=== PATIENT | female | born 1945 | race Caucasian/White ===

== ENCOUNTER 2018-12-31 05:43 | Inpatient (IN) | payer OTHER ==
[2018-12-24 13:37] LABS: HEMATOCRIT 37.4 % (37.0-47.0); HEMOGLOBIN 12.6 gm/dL (12.0-15.0); MCH 30.4 pg (26.0-34.0); MCHC 33.7 g/dL (28.0-37.0); MCV 90.1 fL (80.0-100.0); RBC 4.15 mil/uL (4.20-5.00); RDW 13.3 % (10.5-14.5); URINE BILIRUBIN NEGATIVE (Negative); URINE BLOOD NEGATIVE (Negative); URINE CLARITY CLEAR; URINE COLOR YELLOW; URINE GLUCOSE-RANDOM* NEGATIVE (Negative); URINE KETONES NEGATIVE (Negative); URINE LEUKOCYTES-REFLEX TRACE (Negative); URINE NITRITE-REFLEX NEGATIVE (Negative); URINE PROTEIN (DIPSTICK) NEGATIVE (Negative); URINE UROBILINOGEN 0.2 E.U./dl (0.2-1.0); WBC 11.9 thou/uL (4.0-11.0)
[2018-12-24 13:44] LABS: CREATININE 0.9 mg/dL (0.6-1.0)
[2018-12-24 13:47] LABS: PROTIME 9.7 Seconds (9.3-11.4)
--- NOTE | 2018-12-25 07:30 | EKG ---
[address] [address] ELECTROCARDIOGRAM REPORT Name: DAYOADALI Room #: [facility]#: [id number] ������������������ Admission: ������������������ Attend Phys: Fabirzio Schilling MD Discharge: ������������������ Date of : 41 Report #: [id number] ����������������������������������������������������������������� [id number] THIS REPORT FOR: //name// [facility] Test Date: 2018-12-24 Test Time: 13:28:46 Pat Name: ADALI OSHEA Department: Room: Gender: F Technical Director: Delbert BLANK : 1945 Requested By: Fabrizio Schilling Order Number: [id number] MD: Macario Carrizales Measurements Intervals [place] Rate: 61 P: 62 AR: 184 QRS: 26 QRSD: 96 T: 45 QT: 421 QTc: 424 Interpretive Statements Sinus rhythm Normal tracing Compared to ECG 07/23/2013 17:25:01 Sinus bradycardia no longer present Electronically Signed On 12-25-2018 7:30:21 CDT by Macario Carrizales [email or web address] ��������������������������������������������� <ELECTRONICALLY SIGNED> ���������������������������������������� By: Macario Carrizales MD, [facility] ��������������������������������������������� 12/25/18 0730 1328 27 Macario Carrizales MD, FACC /EPI
[~2018-12-31] VITALS: Ht 154.9 cm; Wt 72.6 kg
--- NOTE | ~2018-12-31 | O ---
[facility] [place] [address] OPERATIVE REPORT Name: ADALI OSHEA Room #: 458-P [facility] IN M.R.#: [id number] Admission: 12/31/18 ������������������ Attend Phys: Fabrizio Schilling MD Discharge: ������������������ Date of : 41 Report #: [id number] THIS REPORT FOR: //name// CC: Dixie Schilling DATE OF SERVICE: 12/31/2018 PREOPERATIVE DIAGNOSIS: Right knee valgus osteoarthritis. POSTOPERATIVE DIAGNOSIS: Right knee valgus osteoarthritis. PROCEDURE: Right total knee arthroplasty using Navio robotic social research assistant. SURGEON: Fabrizio Schilling MD ANESTHESIA: LMA with an adductor canal block. IMPLANTS: [employer] size 6 narrow Legion Oxinium posterior stabilized femur, a size 4 tibia, size 9 polyethylene and size 32 patella. TOURNIQUET TIME: 59 minutes. ESTIMATED BLOOD LOSS: 25 mL. COMPLICATIONS: None. SPECIMENS: None. CONDITION UPON LEAVING THE OPERATING ROOM: Stable. INDICATIONS FOR PROCEDURE: The patient is a 73-year-old female with right knee valgus osteoarthritis. She had failed conservative measures for this and after discussion with her, she elected for right total knee arthroplasty. She does have reported NICKEL allergy and we discussed the usage of Oxinium for her implant. DESCRIPTION OF PROCEDURE: Risks, benefits, alternatives, complications were discussed in detail with the patient including but not limited to risk of anesthesia, risk of damage to nerves, arteries, blood vessels, risk for infection, bleeding, risk for continued knee pain and need for reoperation. Informed consent was obtained from the patient. Right knee was appropriately marked in the preoperative holding area. IV Ancef was given for preoperative antibiotics. Adductor canal block was placed by Anesthesia. She was brought to the operating room and placed in supine position on operating room table. LMA anesthesia was induced without complication. Tourniquet was placed on the right [address] [address] OPERATIVE REPORT Name: ADALI OSHEA Room #: 458-P [facility] IN ..#: [id number] Admission: 12/31/18 ������������������ Attend Phys: Fabrizio Schilling MD Discharge: ������������������ Date of : 41 Report #: [id number] thigh. Right lower extremity was prepped and draped in normal sterile fashion. Timeout was performed properly identifying the patient and procedure as well as the instrumentation and implants. All in the operating room were in agreement. A lower extremity was exsanguinated, tourniquet was inflated. Tourniquet time was 59 minutes. Standard midline approach to knee was made with 10 blade through the skin. Dissection was taken down sharply to the fascia and deep flaps were developed medially and laterally. Fresh 10 blade was used to make a medial parapatellar arthrotomy and the knee was inspected. There was severe lateral compartment osteoarthritis with moderate medial and patellofemoral changes. ACL and PCL were removed sharply. Reference pins were placed in the femur and the tibia. The knee was then digitally mapped using the myaNUMBER system. Intraoperative plan was made and the size 6 narrow femur, a size 4 tibia with a size 11 spacer. After acceptance of the intraoperative plan, distal femoral cut was made with a Navio bur. The 4-in-1 cutting block was then pinned on the distal femur and the anterior, posterior and chamfer cuts were made. Attention was then turned to the tibia and the knee was hyperflexed. The remainder of the menisci removed with Bovie cautery. Tibial resection guide was pinned in place and tibial resection was made. After this, flexion and extension gaps were checked and found to have just slight tightness laterally in extension and a limited lateral release was performed using the pie-crusting technique. This balanced the knee well. Tibia was sized, found to be a size 4. Size 4 tibial trial was placed, pinned and punched and a size 6 femoral trial was placed and the box cut was made. This was then trialed with a size 9 polyethylene. Knee was taken through range of motion, found to be stable, found to have good balance in flexion and extension with a millimeter to 2 mm of laxity throughout range of motion of the knee. A 9 mm was then resected from the posterior surface of the patella and a size 32 patellar trial button was placed. Knee was taken through range of motion, found to have good patellar tracking. Trial components were removed. Bony ends were thoroughly irrigated with normal saline. A final size 4 tibia, size 6 Legion Oxinium posterior stabilized femur and a size 32 patella were cemented in place using standard cementation techniques. While the cement cured, a periarticular injection consisting of morphine, ropivacaine, epinephrine and Toradol was placed around the knee joint capsule. After the cement cured, the tourniquet was deflated. Hemostasis was obtained with Bovie cautery. Final size 9 polyethylene was placed. The fascia was closed with 0 Vicryl, skin was closed with 2-0 Vicryl, 3-0 Monocryl. Dermabond and sterile dressing was applied. The patient tolerated this procedure well and went to recovery room under care of anesthesia postoperatively. ��������������������������������������������� ���������������������������������������� By: ��������������������������������������������� [id number] Fabrizio Schilling MD /nt
[~2018-12-31 05:43] MED LIST: CALCIUM 500 +1 EAC5 PO; CALCIUM 600 MG1 EAC2 PO; COZAAR 25 MG TA25 M1 PO; HTN; IBUPROFEN 600600 M1 PO; IRON325 PO; LOSARTAN-HCTZ1 EACH PO; OMEPRAZOLE40 MG PO; ZANTAC 150MG T150 MG PO
[2018-12-31 16:20] VITALS: BP 151/64
[2018-12-31 16:35] VITALS: BP 135/42
[2018-12-31 16:55] VITALS: BP 119/46
[2018-12-31 17:30] VITALS: BP 125/49
[2018-12-31 18:00] VITALS: BP 119/46
--- NOTE | 2018-12-31 18:01 | NUR ---
PT ARRIVED FROM POST OP THIS EVENING. PT RESTING COMFOTABLY, NO COMPLAINTS.
[2018-12-31 19:36] VITALS: BP 119/46
--- NOTE | 2019-01-01 03:16 | NUR ---
ASSUMED CARE AROUND 1899. AXOX4. R KNEE OA, DRESSING CDI. PAIN MANAGED PER MD ORDER. NO S/S ACUTE DISTRESS NOTED OR REPORTED AT THIS TIME, WILL CONT TO MONITOR FOR ANY CHANGES IN CONDITION.
[2019-01-01 05:41] LABS: HEMATOCRIT 31.1 % (37.0-47.0); HEMOGLOBIN 10.6 gm/dL (12.0-15.0); MCH 30.8 pg (26.0-34.0); MCHC 34.2 g/dL (28.0-37.0); MCV 90.2 fL (80.0-100.0); RBC 3.44 mil/uL (4.20-5.00); RDW 13.1 % (10.5-14.5); WBC 12.5 thou/uL (4.0-11.0)
[2019-01-01 07:16] VITALS: BP 120/40
[2019-01-01] MEDS ORDERED: NEURONTIN 300300 M1 PO (11:50)
[2019-01-01] MEDS ORDERED: ASPIR 8181 MG PO (11:50)
--- NOTE | 2019-01-01 13:54 | NUR ---
PT ADMITTED RELATED TO RIGHT TOTAL KNEE REPLACEMENT. CM REVIEWED CHART AND SPOKE WITH CARE TEAM. CM MET WITH PT AND HER SPOUSE BEDSIDE THIS DAY. PT INDICATED SHE HAD BEEN LIVING IN A HOUSE WITH HER SPOUSE WITH 2 STEPS TO ENTER AND NO STEPS INSIDE. 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 PT INDICATED NO DME OR HH HX. PT INDICATED SHE NEEDS A FWW ISSUED PTS. CM SENT REFERRAL TO [facility] PT DIDN'T INDICATED PREFERENCE AND PROVIDER PLUS COULDN'T ISSUE. CM TO FOLLOW INDICATED WITH DC PLANNING.
[2019-01-01 14:52] VITALS: BP 120/40
--- NOTE | 2019-01-01 14:53 | NUR ---
DIS PT IS CLEAR FOR DC PER PHY. THERAPY. DC PAKMARILY RPOVIDED. MEDSCIPTS GIVE. IV DC'D.
== END 2019-01-01 16:02 | disposition home or self-care (01) | DRG 470 ==
LOC: TBA 05:43 → 4W 05:43 → PRE 05:44 → 4W 16:18 → ENTRNSPT 01-01 15:45 → EDTRNSPTSTS 01-01 15:49 → 4W 01-01 16:02
PROVIDERS: ADMIT Orthopaedic Surgery
DX: M17.11 Unilateral primary osteoarthritis, right knee (principal); Z88.8 Allergy status to other drugs, medicaments and biological substances
CPT/HCPCS: 10047; 50010; 50101; 50415; 50954; 51130; 51225; 53000; 53078; 53365; 54118; 56525; 56527; 56528; 57095; 57103; 57110; 57127; 57180; 62110; 62900; 64043; 65060; 70005